=== PATIENT | male | born 1965 | race Caucasian/White ===

== ENCOUNTER 2017-04-09 21:02 | Emergency (ER) | payer OTHER ==
[~2017-04-09] VITALS: Ht 162.6 cm; Wt 70.3 kg
[~2017-04-09 21:02] MED LIST: ALLEGRA ALLERG180 MG PO; AMOX1TAB12 PO; CIMETIDINE300 MG/5 M PO; INTESTINEX1 CAP PO; MEDROL4 MG PO; ORPH100T PO; TRAM1TAB98 PO; VISTARIL25 MG PO
== END 2017-04-09 23:24 | disposition home or self-care (01) ==
LOC: ER 21:02
DX: K29.70 Gastritis, unspecified, without bleeding (principal)